=== PATIENT | female | born 1975 ===

== ENCOUNTER 2021-09-27 08:15 | Outpatient (RCR) | payer BC, OTHER | END 2021-10-01 | disposition home or self-care (01) | LOC: WSST | DX: R41.841 Cognitive communication deficit (principal) ==

== ENCOUNTER 2021-10-03 13:04 | Outpatient (RCR) | payer BC, OTHER | END 2021-11-01 | disposition home or self-care (01) | LOC: WSST | DX: R41.841 Cognitive communication deficit (principal) ==